=== PATIENT | male | born 1955 | race Two or more races ===

== ENCOUNTER 2025-03-17 08:04 | Inpatient (IN) | payer MEDICARE, OTHER ==
[~2025-03-17] VITALS: Ht 175.3 cm; Wt 121.7 kg
--- NOTE | 2025-03-17 08:45 | ED.PDOC ---
History of Present Illness HPI Comments 69-year-old male presents to the ED with a chief complaint of elevated HR onset today. Patient states he was going to get RT eye surgery, had EKG done, had elevated HR in the 160s, advised to come to ED. Patient states he is currently not experiencing any symptoms, has no complaints. Is currently on blood thinners, has not taken them for the past 8 days due to surgery. Upon ED arrival, EKG showed heart rate of 138 with atrial fibrillation. Denies headache, chest pain, shortness of breath, dizziness, blurred vision, nausea, vomiting, dysuria, numbness/tingling, weakness, dysuria, hematuria. No other symptoms or modifying factors present at this time. Chief Complaint: Abnormal LAB's Time Seen by MD: 08:40 Reviewed Notes: Medications, Allergies Allergies: Coded Allergies: NO KNOWN ALLERGIES (Unverified , 03/17/25) Information Source: Patient Mode of Arrival: Ambulatory Severity: Moderate Timing: Hours Duration: Since onset Prehospital treatment: None Past Medical History PAST MEDICAL HISTORY: Denies Surgical History: Denies all surgeries Family History Family History: Reviewed,noncontributory to illness, No family hx of Cancer, No family hx of DM, No family hx of Heart eve, No family hx of HTN, No family hx ofKidney eve, No family hx of Liver eve, No family hx of Lung eve, No family hx of Stroke Social History Smoker: Non-Smoker Alcohol: Denies ETOH Use Drugs: Denies Drug Use Lives In: Home Constitutional: denies: chills, diaphoresis, fatigue, fever, malaise, sweats, weakness, others EENTM: denies: blurred vision, double vision, ear bleeding, ear discharge, ear drainage, ear pain, ear ringing, eye pain, eye redness, hearing loss, mouth pain, mouth swelling, nasal discharge, nose bleeding, nose congestion, nose pain, photophobia, tearing, throat pain, throat swelling, voice changes, others Respiratory: denies: cough, hemoptysis, orthopnea, SOB at rest, shortness of breath, SOB with excertion, stridor, wheezing, others Cardiovascular: reports: others (elevated HR); denies: chest pain, dizzy spells, diaphoresis, Dyspnea on exertion, edema, irregular heart beat, left arm pain, lightheadedness, palpitations, PND, syncope Gastrointestinal: denies: abdomen distended, abdominal pain, blood streaked bowels, constipated, diarrhea, dysphagia, difficulty swallowing, hematemesis, melena, nausea, poor appetite, poor fluid intake, rectal bleeding, rectal pain, vomiting, others Genitourinary: denies: burning, dysuria, flank pain, frequency, hematuria, incontinence, penile discharge, penile sore, pain, testicle pain, testicle swelling, urgency, others Neurological: denies: dizziness, fainting, headache, left sided numbness, left sided weakness, numbness, paresthesia, pre-existing deficit, right sided numbness, right sided weakness, seizure, speech problems, tingling, tremors, weakness, others Musculoskeletal: denies: back pain, gout, joint pain, joint swelling, muscle pain, muscle stiffness, neck pain, others Integumetry: denies: bruises, change in color, change in hair/nails, dryness, laceration, lesions, lumps, rash, wounds, others Allergic/Immunocompromised: denies: Difficulty Healing, Frequent Infections, Hives, Itching, others Hematologic/Lymphatic: denies: anemia, blood clots, easy bleeding, easy bruising, swollen glands, others Endocrine: denies: excessive hunger, excessive sweating, excessive thirst, excessive urination, flushing, intolerance to cold, intolerance to heat, unexplained weight gain, unexplained weight loss, others Psychiatric: denies: anxiety, bipolar disorder, depression, hopeless, panic disorder, schizophrenia, sleepless, suicidal, others All Other Systems: Reviewed and Negative Physical Exam General Appearance: Moderate Distress, Normal HEENT: Normal ENT Inspection, Pharynx Normal, TMs Normal Neck: Full Range of Motion, Non-Tender, Normal, Normal Inspection Respiratory: Chest Non-Tender, Lungs Clear, No Accessory Muscle Use, No Respiratory Distress, Normal Breath Sounds Cardiovascular: Irregular, No Edema, No JVD, No Murmur, No Gallop, Normal Peripheral Pulses, Tachycardia Breast Exam: Deferred Gastrointestinal: No Organomegaly, Non Tender, No Pulsatile Mass, Normal Bowel Sounds, Soft Genitalia: Deferred Pelvic: Deferred Rectal: Deferred Extremities: No calf tenderness, Normal capillary refill, Normal inspection, Normal range of motion, Non-tender, No pedal edema Musculoskeletal : Apperance: Normal Neurologic: Alert, oracle r12 developer II-XII nml as Tested, No Motor Deficits, Normal Affect, Normal Mood, No Sensory Deficits Cerebellar Function: Normal Reflexes: Normal Skin: Dry, Normal Color, Warm Peripheral Pulses: 3+ Radial (R), 3+ Radial (L) Lymphatic: No Adenopathy Was a procedure done? Was a procedure done?: No EKG EKG : Pulse Rate (adult): 138 Cardiac Rhythm: Afib Differential Dx Considerations may include: Atrial fibrillation X-Ray, Labs, Meds, VS Vital Signs Date Time Temp Pulse Resp B/P (MAP) Pulse Ox O2 Delivery O2 Flow Rate FiO2 03/17/25 13:00 105 17 120/77 (91) 98 03/17/25 12:00 84 15 108/65 (79) 98 03/17/25 11:00 122 20 124/70 (88) 99 03/17/25 10:02 101 03/17/25 09:46 144 17 99 Room Air* 0 21 03/17/25 09:46 97.8 144 17 127/78 (94) 99 97.8 03/17/25 09:03 97.5 71 17 128/88 (101) 100 97.5 03/17/25 08:47 138 03/17/25 08:21 138 03/17/25 08:08 97.4 83 18 142/81 98 97.4 Lab Test 03/17/25 11:30 03/17/25 08:54 Range/Units Urine Color Light-yellow Yellow Urine Clarity Clear Clear Urine pH 5.0 5.0-9.0 Urine Specific [place] 1.021 1.001-1.035 Urine Protein Negative Negative Urine Ketones Negative Negative Urine Blood Negative Negative /uL Urine Nitrite Negative Negative Urine Bilirubin Negative Negative Urine Urobilinogen Normal Negative mg/dL Urine Leukocyte Esterase Negative Negative /uL Urine RBC None seen 0 - 3 /hpf Urine Microscopic WBC < 1 0-3 /HPF Urine Squamous Epithelial Cells Few <5 /hpf Urine Bacteria None seen None Seen /hpf Urine Mucus Few None Seen Urine Glucose 3+ H Normal mg/dL White Blood Count 8.5 4.4-10.8 10^3/uL Red Blood Count 5.42 4.5-5.90 10^6/uL Hemoglobin 17.1 13.5-17.5 g/dL Hematocrit 48.7 41.0-53.0 % Mean Corpuscular Volume 89.9 80.0-100.0 fL Mean Corpuscular Hemoglobin 31.6 28.0-32.0 pg Mean Corpuscular Hemoglobin Concent 35.1 32.0-36.0 g/dL Red Cell Distribution Width 13.0 11.8-14.3 % Platelet Count 258 140-450 10^3/uL Mean Platelet Volume 8.0 6.9-10.8 fL Neutrophils (%) (Auto) 71.0 37.0-80.0 % Lymphocytes (%) (Auto) 20.0 10.0-50.0 % Monocytes (%) (Auto) 6.5 0.0-12.0 % Eosinophils (%) (Auto) 1.6 0.0-7.0 % Basophils (%) (Auto) 0.9 0.0-2.0 % Neutrophils # (Auto) 6.1 1.6-8.6 10 ^3/uL Lymphocytes # (Auto) 1.7 0.4-5.4 10 ^3/uL Monocytes # (Auto) 0.6 0-1.3 10 ^3/uL Eosinophils # (Auto) 0.1 0-0.8 10 ^3/uL Basophils # (Auto) 0.1 0-0.2 10 ^3/uL Nucleated Red Blood Cells 0.3 % Sodium Level 140 136-145 mmol/L Potassium Level 4.2 3.5-5.1 mmol/L Chloride Level 104 98-107 mmol/L Carbon Dioxide Level 27 20-31 mmol/L Anion Gap 9 5-15 Blood Urea Nitrogen 16 9-23 mg/dL Creatinine 0.92 0.700-1.30 mg/dL Glomerular Filtration Rate Calc 91 >90 mL/min BUN/Creatinine Ratio 17.4 10.0-20.0 Serum Glucose 203 H 74-106 mg/dL Calcium Level 9.6 8.7-10.4 mg/dL Troponin I High Sensitivity 5 </=54 ng/L Current Medications Medications (Trade) Dose Ordered Sig/Russ Route Start Time Stop Time Status Last Admin Amiodarone HCl 100 ml @ 600 mls/hr ONCE ONCE IV 03/17/25 08:45 03/17/25 08:54 DC 03/17/25 09:44 Amiodarone HCl 250 ml @ 33.33 mls/ hr Q7H31M ONCE IV 03/17/25 09:00 03/17/25 16:30 03/17/25 10:00 Acetaminophen/ Hydrocodone Bitart ([place] 5/325MG Tab) 1 tab ONCE ONCE PO 03/17/25 10:30 03/17/25 10:31 DC 03/17/25 10:47 Patient alert. Irregular rhythm. Vitals stable. Answering questions. He does not know he has a history of atrial fibrillation. Saturation pristine on room air. Blood pressure slightly elevated. EKG reviewed does show atrial fibrillation. Started amiodarone. Explained to the patient. Continue monitoring. [place] [id number] Ph: [phone] DIAGNOSTIC IMAGING Diagnostic Imaging Report : [id number] Signed PATIENT: JUAN DIEGO LARSON ACCT: [id number] UNIT: [id number] : 1955 LOC: ER ROOM / BED: / AGE / SEX: 69 / M ADM STATUS: REG ER SERVICE 8 ORDERING PHYSICIAN: FITO SHEPHERD MD PROCEDURE(s): CXRP - CHEST PORTABLE REASON: sob ORDER NUMBER(s): [id number], ACCESSION NUMBER(s): [id number] EXAM: XY CHEST PORTABLE HISTORY: sob COMPARISON: None TECHNIQUE: Portable AP view of the chest was performed. FINDINGS: No pneumothorax, consolidative infiltrates, or pulmonary edema. The heart is not enlarged. There is mild thoracic degenerative disc disease. IMPRESSION: No acute intrathoracic process. ATED BY: BLANCA MOSS MD DICTATED DATE/TIME: 03/17/25909 SIGNED BY: BLANCA MOSS MD SIGNED DATE/TIME: 03/17/25909 CC: Time of 1ST Reevaluation: 09:10 Reevaluation 1ST: Unchanged Patient Education/Counseling: Diagnosis, Treatment, Prognosis Family Education/Counseling: No Family Present SEPSIS Sepsis Screen Date sepsis recognized/suspect: Mar 17, 2025 Time Sepsis recognized/suspect: 0808 Recent Procedure: No On Antibiotic Therapy: No Respiratory Rate >20: No Heart Rate >90: No Temp<36 C (96.8 F) or >38.3 C: No SBP <90 or MAP <65 mmHG: No New Acute Mental Status Change: No Is the patient on CPAP, BIPAP,: No Physician Orders Chest Portable (03/17/25 08:39) Amiodarone 450mg/250ml Ae (Cordarone) (03/17/25 09:00) Electrocardigram (03/17/25 09:17) Vital Signs Date Time Temp Pulse Resp B/P (MAP) Pulse Ox O2 Delivery O2 Flow Rate FiO2 03/17/25 13:00 105 17 120/77 (91) 98 03/17/25 12:00 84 15 108/65 (79) 98 03/17/25 11:00 122 20 124/70 (88) 99 03/17/25 10:02 101 03/17/25 09:46 144 17 99 Room Air* 0 21 03/17/25 09:46 97.8 144 17 127/78 (94) 99 97.8 03/17/25 09:03 97.5 71 17 128/88 (101) 100 97.5 03/17/25 08:47 138 03/17/25 08:21 138 03/17/25 08:08 97.4 83 18 142/81 98 97.4 Laboratory Tests Test 03/17/25 08:54 White Blood Count 8.5 10^3/uL (4.4-10.8) Medications Medications Dose Ordered Sig/Russ Route Start Time Stop Time Status Last Admin Dose Admin Acetaminophen/ Hydrocodone Bitart 1 tab ONCE ONCE PO 03/17/25 10:30 03/17/25 10:31 DC 03/17/25 10:47 Amiodarone HCl 100 ml @ 600 mls/hr ONCE ONCE IV 03/17/25 08:45 03/17/25 08:54 DC 03/17/25 09:44 Amiodarone HCl 250 ml @ 33.33 mls/ hr Q7H31M ONCE IV 03/17/25 09:00 03/17/25 16:30 03/17/25 10:00 Departure 1 Departure Time of Disposition: 09:03 Impression: Primary Impression: Atrial fibrillation Qualified Codes: I48.0 - Paroxysmal atrial fibrillation Additional Impression: HTN (hypertension) Qualified Codes: I10 - Essential (primary) hypertension Disposition: ADMITTED INPATIENT Admit to: Med Surg Condition: Guarded Critical Care Note Critical Care Time?: Yes (90 min-critical care time only) Stability Stability form required: No Heart Score Heart Score: Heart Score Response (Comments) Value History Slightly Suspicious 0 EKG Normal 0 Age >65 2 Risk Factors >3 or Hx ASHD 2 Troponin Normal limit 0 Total 4 I personally scribed for FITO SHEPHERD MD ([email or web address]) on 03/17/25 at 08:45. Electronically submitted by Heidi Talavera ([email or web address]). I personally scribed for FITO SHEPHERD MD ([email or web address]) on 03/17/25 at 08:47. Electronically submitted by Heidi Talavera ([email or web address]). I personally scribed for FITO SHEPHERD MD ([email or web address]) on 03/17/25 at 09:32. Electronically submitted by Heidi Talavera ([email or web address]). FITO SHEPHERD MD Mar 17, 2025 08:45
[2025-03-17 09:07] LABS: Hematocrit 48.7 % (41.0-53.0); Hemoglobin 17.1 g/dL (13.5-17.5); Mean Corpuscular Hemoglobin 31.6 pg (28.0-32.0); Mean Corpuscular Volume 89.9 fL (80.0-100.0); Nucleated Red Blood Cells % 0.3 %
[2025-03-17 09:11] LABS: Chloride 104 mmol/L (98-107); Potassium 4.2 mmol/L (3.5-5.1); Sodium 140 mmol/L (136-145)
[2025-03-17 09:12] LABS: Anion Gap 9 (5-15); Carbon Dioxide 27 mmol/L (20-31)
--- NOTE | 2025-03-17 09:12 | DVH ---
EXAM: XY CHEST PORTABLE HISTORY: sob COMPARISON: None TECHNIQUE: Portable AP view of the chest was performed. FINDINGS: No pneumothorax, consolidative infiltrates, or pulmonary edema. The heart is not enlarged. There is mild thoracic degenerative disc disease. IMPRESSION: No acute intrathoracic process.
[2025-03-17 09:13] LABS: Calcium 9.6 mg/dL (8.7-10.4)
[2025-03-17 09:17] LABS: BUN/Creatinine Ratio 17.4 (10.0-20.0); Blood Urea Nitrogen 16 mg/dL (9-23)
[2025-03-17 09:20] LABS: Glucose 203 mg/dL (74-106)
[2025-03-17] MEDS: AMIODARONE BOLUS KIT 100 ML IV ONE (09:44)
[2025-03-17 09:46] VITALS: PULSE 144; RESP 17; O2SAT 99
[2025-03-17] MEDS: HYDROcodone-ACET 5/325MG TAB PO ONE (10:47)
[2025-03-17 12:04] LABS: Urine Protein, UAD Negative (Negative)
[2025-03-17 16:07] LABS: Cholesterol 187 mg/dL (< 200); HDL Cholesterol 52 mg/dL (40-59)
[2025-03-17 16:12] LABS: Triglycerides 160 mg/dL (< 150)
--- NOTE | 2025-03-17 16:35 | DVHHPRES ---
History of Present Illness Resident Creating Document: HARSH SEWELL RESIDENT History of Present Illness 69-year-old male with past medical history of diabetes mellitus, hypertension was recently in the [facility] for cataract surgery where he had the preop evaluation and was found to have a heart rate of 160s. Patient was asymptomatic during that period of time. Patient is transferred to the ER for management of elevated heart rate. On presenting to the ER, patient was found to have atrial fibrillation and was started on amiodarone drip by the ER physician. He mentioned that he never had AFib in the past and this is new onset AFib. Patient is currently on aspirin(started by the PCP because patient has a history of diabetes and hypertension for cardio protection but no other specific reason) but no other anticoagulants/antiplatelets. He denied any history of stroke. Currently patient is on amiodarone drip and heart rate is fluctuating from 90s to 120s. Patient is not mentioning any complaints of chest pain, shortness of breath, palpitations, dizziness, headache, cough, nausea, vomiting. Past medical history Diabetes mellitus, hypertension Past surgical history No recent surgery Medication history Metformin Glipizide Pioglitazone Aspirin Gabapentin Antihypertensive medication with 2.5 mg daily dose but does not remember the name of the medication Social history Patient lives with family Denied smoking, marijuana, alcohol intake Patient has a PCP but does not remember the PCPs name Allergic history No known allergies Family history No significant history of anyone in the family having heart disease Review of Systems Review of Systems As described in the HPI Allergies: Coded Allergies: NO KNOWN ALLERGIES (Unverified , 03/17/25) Medications Current Medications Medications Dose Ordered Sig/Russ Route Start Time Stop Time Status Last Admin Dose Admin Enoxaparin Sodium 80 mg Q12HR SC 03/17/25 22:00 UNV Exam Vital Signs Vital Signs Date Time Temp Pulse Resp B/P (MAP) Pulse Ox O2 Delivery O2 Flow Rate FiO2 03/17/25 13:00 105 17 120/77 (91) 98 03/17/25 09:46 Room Air* 0 21 03/17/25 09:46 97.8 97.8 Exam Examination General Appearance: Alert, Oriented X3, Cooperative, No acute distress HEENT: EOMI Respiratory: Clear to auscultation, Normal air movement Cardiovascular: Regular rate, Normal S1, Normal S2 Abdominal: Normal bowel sounds Extremities: No cyanosis, No edema, Normal pulses, No tenderness/swelling Skin: No rashes, No breakdown Neuro: Normal speech and tone Labs/Xrays Labs Test 03/17/25 11:30 03/17/25 08:54 Range/Units Urine Color Light-yellow Yellow Urine Clarity Clear Clear Urine pH 5.0 5.0-9.0 Urine Specific [place] 1.021 1.001-1.035 Urine Protein Negative Negative Urine Ketones Negative Negative Urine Blood Negative Negative /uL Urine Nitrite Negative Negative Urine Bilirubin Negative Negative Urine Urobilinogen Normal Negative mg/dL Urine Leukocyte Esterase Negative Negative /uL Urine RBC None seen 0 - 3 /hpf Urine Microscopic WBC < 1 0-3 /HPF Urine Squamous Epithelial Cells Few <5 /hpf Urine Bacteria None seen None Seen /hpf Urine Mucus Few None Seen Urine Glucose 3+ H Normal mg/dL White Blood Count 8.5 4.4-10.8 10^3/uL Red Blood Count 5.42 4.5-5.90 10^6/uL Hemoglobin 17.1 13.5-17.5 g/dL Hematocrit 48.7 41.0-53.0 % Mean Corpuscular Volume 89.9 80.0-100.0 fL Mean Corpuscular Hemoglobin 31.6 28.0-32.0 pg Mean Corpuscular Hemoglobin Concent 35.1 32.0-36.0 g/dL Red Cell Distribution Width 13.0 11.8-14.3 % Platelet Count 258 140-450 10^3/uL Mean Platelet Volume 8.0 6.9-10.8 fL Neutrophils (%) (Auto) 71.0 37.0-80.0 % Lymphocytes (%) (Auto) 20.0 10.0-50.0 % Monocytes (%) (Auto) 6.5 0.0-12.0 % Eosinophils (%) (Auto) 1.6 0.0-7.0 % Basophils (%) (Auto) 0.9 0.0-2.0 % Neutrophils # (Auto) 6.1 1.6-8.6 10 ^3/uL Lymphocytes # (Auto) 1.7 0.4-5.4 10 ^3/uL Monocytes # (Auto) 0.6 0-1.3 10 ^3/uL Eosinophils # (Auto) 0.1 0-0.8 10 ^3/uL Basophils # (Auto) 0.1 0-0.2 10 ^3/uL Nucleated Red Blood Cells 0.3 % Sodium Level 140 136-145 mmol/L Potassium Level 4.2 3.5-5.1 mmol/L Chloride Level 104 98-107 mmol/L Carbon Dioxide Level 27 20-31 mmol/L Anion Gap 9 5-15 Blood Urea Nitrogen 16 9-23 mg/dL Creatinine 0.92 0.700-1.30 mg/dL Glomerular Filtration Rate Calc 91 >90 mL/min BUN/Creatinine Ratio 17.4 10.0-20.0 Serum Glucose 203 H 74-106 mg/dL Calcium Level 9.6 8.7-10.4 mg/dL Troponin I High Sensitivity 5 </=54 ng/L SEPSIS Sepsis Screen Date sepsis recognized/suspect: Mar 17, 2025 Time Sepsis recognized/suspect: 945 Recent Procedure: No On Antibiotic Therapy: No Respiratory Rate >20: No Heart Rate >90: Yes Temp<36 C (96.8 F) or >38.3 C: No SBP <90 or MAP <65 mmHG: No New Acute Mental Status Change: No Is the patient on CPAP, BIPAP,: No Physician Orders Chest Portable (03/17/25 08:39) Amiodarone 450mg/250ml Ae (Cordarone) (03/17/25 09:00) Electrocardigram (03/17/25 09:17) Admit (03/17/25 14:58) Code Status (03/17/25 14:58) Complete Blood Count (03/18/25 04:00) Comprehensive Metabolic Panel (03/18/25 04:00) Echo 2d Mode Cardiac Dop (03/17/25 14:58) Notify Md Of Changes From Base (03/17/25 14:58) Groundsman For 24 Hours (03/17/25 14:58) Emergency Dysrhythmia Protocol (03/17/25 14:58) Rhythm Strips Once Every Shift (03/17/25 14:58) * Cardiology Consult (03/17/25 14:58) Cardiac Diet-2gna,Lofat,Lochol (03/17/25 Dinner) Hemoglobin A1c (03/17/25 15:34) Lipid Panel (03/17/25 15:34) Enoxaparin Sodium (Lovenox) (03/17/25 22:00) PTPTT (03/17/25 15:34) Drug Screen (03/17/25 15:36) Vital Signs Date Time Temp Pulse Resp B/P (MAP) Pulse Ox O2 Delivery O2 Flow Rate FiO2 03/17/25 13:00 105 17 120/77 (91) 98 03/17/25 12:00 84 15 108/65 (79) 98 03/17/25 11:00 122 20 124/70 (88) 99 03/17/25 10:02 101 03/17/25 09:46 144 17 99 Room Air* 0 21 03/17/25 09:46 97.8 144 17 127/78 (94) 99 97.8 03/17/25 09:03 97.5 71 17 128/88 (101) 100 97.5 03/17/25 08:47 138 03/17/25 08:21 138 03/17/25 08:08 97.4 83 18 142/81 98 97.4 Laboratory Tests Test 03/17/25 08:54 White Blood Count 8.5 10^3/uL (4.4-10.8) Medications Medications Dose Ordered Sig/Russ Route Start Time Stop Time Status Last Admin Dose Admin Acetaminophen/ Hydrocodone Bitart 1 tab ONCE ONCE PO 03/17/25 10:30 03/17/25 10:31 DC 03/17/25 10:47 1 TAB Amiodarone HCl 100 ml @ 600 mls/hr ONCE ONCE IV 03/17/25 08:45 03/17/25 08:54 DC 03/17/25 09:44 600 MLS/HR Amiodarone HCl 250 ml @ 33.33 mls/ hr Q7H31M ONCE IV 03/17/25 09:00 03/17/25 16:30 03/17/25 10:00 33.33 MLS/HR Assessment/Plan Assessment/Plan Assessment/plan # new onset AFib with CHADS-VASc score of 4 and has bled score of 3 - currently on amiodarone and therapeutic Lovenox Cardiology consulted Echocardiogram ordered Chest x-ray EKG, trops # Hypertension -currently on Coreg started by the batching operator # diabetes mellitus type 2 -sliding scale insulin #DVT prophylaxis On therapeutic Lovenox Code status discussed with the patient for greater than 21 minutes, full code Case discussion with Dr Crooks Plan discussed with: Patient, Other My Orders Orders - HARSH SEWELL RESIDENT Procedure Category Date Status Time Admit ADMIT 03/17/25 Transmitted 14:58 Code Status CODE 03/17/25 Transmitted 14:58 Complete Blood Count LAB 03/18/25 Verified 04:00 Comprehensive LAB 03/18/25 Verified Metabolic Panel 04:00 Echo 2d Mode Cardiac US 03/17/25 Logged DOP 14:58 Notify Of Changes [facility] 03/17/25 In Process From Base 14:58 Groundsman For [facility] 03/17/25 In Process 24 Hours 14:58 Emergency Dysrhythmia [facility] 03/17/25 In Process Protocol 14:58 Rhythm Strips Once [facility] 03/17/25 In Process Every Shift 14:58 * Cardiology Consult CONS 03/17/25 Transmitted 14:58 Cardiac DIET 03/17/25 Transmitted Diet-2gna,Lofat,Lochol Dinner Hemoglobin A1c LAB 03/17/25 In Process 15:34 Lipid Panel LAB 03/17/25 In Process 15:34 Enoxaparin Sodium PHA 03/17/25 Logged (Lovenox) 22:00 PTPTT LAB 03/17/25 Logged 15:34 Drug Screen LAB 03/17/25 Logged 15:36 Date of Service: Mar 17, 2025 Billing Provider: KEVIN CROOKS MD Common Visit Codes: 99355-[id number] INP/OBS CARE (HIGH) Secondary Visit Codes: [id number] CARE PLAN 30 MINUTES HARSH SEWELL RESIDENT Mar 17, 2025 16:35 KEVIN CROOKS MD Mar 18, 2025 01:51
[2025-03-17 16:50] LABS: INR 1.07 (0.9-1.15); Partial Thromboplastin Time 27.4 SEC (24.5-34.5); Prothrombin Time 11.3 sec (9.3-11.8)
--- NOTE | 2025-03-17 17:12 | DVHINCON2 ---
Date of service: Mar 17, 2025 History of Present Illness 69-year-old male with past medical history of diabetes mellitus, hypertension was recently in the [facility] for cataract surgery where he had the preop evaluation and was found to have a heart rate of 160s. Patient was asymptomatic during that period of time. Patient is transferred to the ER for management of elevated heart rate. On presenting to the ER, patient was found to have atrial fibrillation and was started on amiodarone drip by the ER physician. He mentioned that he never had AFib in the past and this is new onset AFib. Patient is currently on aspirin(started by the PCP because patient has a history of diabetes and hypertension for cardio protection but no other specific reason) but no other anticoagulants/antiplatelets. He denied any history of stroke. Currently patient is on amiodarone drip and heart rate is fluctuating from 90s to 120s. Patient is not mentioning any complaints of chest pain, shortness of breath, palpitations, dizziness, headache, cough, nausea, vomiting. Past medical history Diabetes mellitus, hypertension Past surgical history No recent surgery Medication history Metformin Glipizide Pioglitazone Aspirin Gabapentin Antihypertensive medication with 2.5 mg daily dose but does not remember the name of the medication Past Medical History reviewed Allergies: Coded Allergies: NO KNOWN ALLERGIES (Unverified , 03/17/25) Current Medications Current Medications Medications (Trade) Dose Ordered Sig/Russ Route PRN Reason Start Time Stop Time Status Last Admin Enoxaparin Sodium (Lovenox) 80 mg Q12HR SC 03/17/25 22:00 UNV Amiodarone HCl 250 ml @ 16.66 mls/ hr Q15H1M IV 03/17/25 23:15 UNV Review of Systems 10 pt ros otherwise negative Vital Signs Vital Signs Date Time Temp Pulse Resp B/P (MAP) Pulse Ox O2 Delivery O2 Flow Rate FiO2 03/17/25 16:00 99 18 123/60 (81) 96 03/17/25 09:46 Room Air* 0 21 03/17/25 09:46 97.8 97.8 Physical Exam nad s1 s2 irregular ctab soft nt/nd no edema Labs/Diagnostic Data Labs Test 03/17/25 16:14 03/17/25 11:30 03/17/25 08:54 Range/Units Prothrombin Time 11.3 9.3-11.8 sec Prothrombin Time INR 1.07 0.9-1.15 Activated Partial Thromboplast Time 27.4 24.5-34.5 SEC Urine Color Light-yellow Yellow Urine Clarity Clear Clear Urine pH 5.0 5.0-9.0 Urine Specific [place] 1.021 1.001-1.035 Urine Protein Negative Negative Urine Ketones Negative Negative Urine Blood Negative Negative /uL Urine Nitrite Negative Negative Urine Bilirubin Negative Negative Urine Urobilinogen Normal Negative mg/dL Urine Leukocyte Esterase Negative Negative /uL Urine RBC None seen 0 - 3 /hpf Urine Microscopic WBC < 1 0-3 /HPF Urine Squamous Epithelial Cells Few <5 /hpf Urine Bacteria None seen None Seen /hpf Urine Mucus Few None Seen Urine Glucose 3+ H Normal mg/dL White Blood Count 8.5 4.4-10.8 10^3/uL Red Blood Count 5.42 4.5-5.90 10^6/uL Hemoglobin 17.1 13.5-17.5 g/dL Hematocrit 48.7 41.0-53.0 % Mean Corpuscular Volume 89.9 80.0-100.0 fL Mean Corpuscular Hemoglobin 31.6 28.0-32.0 pg Mean Corpuscular Hemoglobin Concent 35.1 32.0-36.0 g/dL Red Cell Distribution Width 13.0 11.8-14.3 % Platelet Count 258 140-450 10^3/uL Mean Platelet Volume 8.0 6.9-10.8 fL Neutrophils (%) (Auto) 71.0 37.0-80.0 % Lymphocytes (%) (Auto) 20.0 10.0-50.0 % Monocytes (%) (Auto) 6.5 0.0-12.0 % Eosinophils (%) (Auto) 1.6 0.0-7.0 % Basophils (%) (Auto) 0.9 0.0-2.0 % Neutrophils # (Auto) 6.1 1.6-8.6 10 ^3/uL Lymphocytes # (Auto) 1.7 0.4-5.4 10 ^3/uL Monocytes # (Auto) 0.6 0-1.3 10 ^3/uL Eosinophils # (Auto) 0.1 0-0.8 10 ^3/uL Basophils # (Auto) 0.1 0-0.2 10 ^3/uL Nucleated Red Blood Cells 0.3 % Sodium Level 140 136-145 mmol/L Potassium Level 4.2 3.5-5.1 mmol/L Chloride Level 104 98-107 mmol/L Carbon Dioxide Level 27 20-31 mmol/L Anion Gap 9 5-15 Blood Urea Nitrogen 16 9-23 mg/dL Creatinine 0.92 0.700-1.30 mg/dL Glomerular Filtration Rate Calc 91 >90 mL/min BUN/Creatinine Ratio 17.4 10.0-20.0 Serum Glucose 203 H 74-106 mg/dL Hemoglobin A1c 6.7 H <5.7 % A1C Calcium Level 9.6 8.7-10.4 mg/dL Troponin I High Sensitivity 5 </=54 ng/L Triglycerides Level 160 H < 150 mg/dL Cholesterol Level 187 < 200 mg/dL LDL Cholesterol 130 H < 100 mg/dL HDL Cholesterol 52 40-59 mg/dL Assessment afib rvr preop cataract DM Plan/Recommendation agree with amio gtt lovenox check echo cont BB could be chronic transition to po amio tomorrow pt says he had ecg 2 weeks ago which was normal, we dont have this however Plan discussed with: Patient ANAT GAFFNEY MD Mar 17, 2025 17:12
[2025-03-17] MEDS ORDERED: DEXTROSE (50%) 50ML SYRG IV PRN (18:30)
[2025-03-17 21:16] VITALS: BP 136/97; PULSE 122; RESP 18; TEMP 98.1; O2SAT 98
[2025-03-17 21:45] LABS: Amphetamine Screen, Urine Neg (NEGATIVE); Barbiturate Scree,Urine Neg (NEGATIVE); Benzodiazephine Screen, Urine Neg (NEGATIVE); Cocaine Screen, Urine Neg (NEGATIVE); Opiate Scree,Urine Neg (NEGATIVE)
[2025-03-17 21:46] LABS: Cannabinoid Screen, Urine Neg (NEGATIVE); Phencyclidine Screen, Urine Neg (NEGATIVE)
[2025-03-17] MEDS: CARVEDILOL 3.125 MG TAB PO SCH (22:49)
[2025-03-17] MEDS: ENOXAPARIN SOD 80 MG/0.8ML SYRINGE SC SCH (22:50)
[2025-03-18] VITALS (8 sets, daily range): BP systolic 118–141; BP diastolic 54–86; PULSE 62–98; RESP 16–18; TEMP 97.7–98; O2SAT 96–99
[2025-03-18] MEDS ORDERED: GLIP10TA9 PO (03:53)
[2025-03-18] MEDS ORDERED: LISI2.5T47 PO (03:53)
[2025-03-18] MEDS ORDERED: ASPI81CH59 PO (03:53)
[2025-03-18] MEDS ORDERED: METF-372 PO (03:53)
[2025-03-18 07:08] LABS: Hematocrit 45.0 % (41.0-53.0); Hemoglobin 15.8 g/dL (13.5-17.5); Mean Corpuscular Hemoglobin 31.5 pg (28.0-32.0); Mean Corpuscular Volume 89.6 fL (80.0-100.0); Nucleated Red Blood Cells % 0.1 %
[2025-03-18 07:23] LABS: Alanine Aminotransferase 11 U/L (7-40); Albumin 4.0 g/dL (3.2-4.8); Alkaline Phosphatase 82 U/L (46-116); Anion Gap 11 (5-15); BUN/Creatinine Ratio 17.2 (10.0-20.0); Bilirubin, Total 0.7 mg/dL (0.2-1.0); Blood Urea Nitrogen 15 mg/dL (9-23); Calcium 9.0 mg/dL (8.7-10.4); Carbon Dioxide 26 mmol/L (20-31); Chloride 103 mmol/L (98-107); Potassium 4.3 mmol/L (3.5-5.1); Sodium 140 mmol/L (136-145); Total Protein 6.5 g/dL (5.7-8.2)
[2025-03-18 07:30] LABS: Glucose 236 mg/dL (74-106)
[2025-03-18] MEDS ORDERED: DEXTROSE (50%) 50ML SYRG IV PRN (08:15)
[2025-03-18] MEDS: ACCU-CHEK COMFORT CURVE STRIP VI SCH ×2 (10:49)
[2025-03-18] MEDS: InsuLIN REG 1unit/0.01ml Soln (100units/ml) SC SCH ×2 (10:49)
--- NOTE | 2025-03-18 18:23 | DVHPNRES ---
Progress Note Date Seen: Mar 18, 2025 Resident Creating Document: SINTIA BRADEN RESIDENT Medical Necessity Reason Pt with a Central, PICC or Fol: No Subjective Review of Systems 69-year-old male with past medical history of diabetes mellitus, hypertension was recently in the [facility] for cataract surgery where he had the preop evaluation and was found to have a heart rate of 160s. Patient was asymptomatic during that period of time. Patient is transferred to the ER for management of elevated heart rate. On presenting to the ER, patient was found to have atrial fibrillation and was started on amiodarone drip by the ER physician. He mentioned that he never had AFib in the past and this is new onset AFib. Patient is currently on aspirin(started by the PCP because patient has a history of diabetes and hypertension for cardio protection but no other specific reason) but no other anticoagulants/antiplatelets. He denied any history of stroke. Patient also states he has been taking aspirin for 30 years. And stopped 8 days ago to get cataract surgery. Past surgical history: Denies Family history: Reviewed, noncontributory Social history: Patient denies smoking, alcohol, drug use, medication history: Metformin ,Glipizide, Pioglitazone , Aspirin, Gabapentin Lives with: Family 03/18/2025: Patient seen at bedside. Patient denies any symptoms, nausea, vomiting, palpitations, chest pain, shortness of breath. Patient switched to p.o. amio b.i.d.. Patient is to be discharged tomorrow with Eliquis at bedside. Objective vital signs Vital Sign Date Time Temp Pulse Resp B/P (MAP) Pulse Ox O2 Delivery O2 Flow Rate FiO2 03/18/25 17:00 98.0 68 18 141/86 (104) 99 98.0 03/18/25 08:15 Room Air* 0 21 Total Intake and Output 03/17/25 03/17/25 03/18/25 15:00 23:00 07:00 Intake Total 266.65 ml 100.01 ml 300 ml Balance 266.65 ml 100.01 ml 300 ml medications Current Medications Medications Dose Ordered Sig/Russ Route Start Time Stop Time Status Last Admin Dose Admin Enoxaparin Sodium 80 mg Q12HR SC 03/17/25 22:00 03/17/25 22:50 80 MG Carvedilol 6.25 mg Q12HR PO 03/17/25 22:00 122/25 09:23 6.25 MG Insulin Glargine 10 units HS SC 03/18/25 22:00 Diagnostic Test (Pha) 1 strip ACHS 03/18/25 11:30 03/18/25 10:49 1 STRIP Insulin Human Regular ACHS SC 03/18/25 11:30 Dextrose 50 ml UD PRN IV 03/18/25 08:15 Amiodarone HCl 250 ml @ 16.66 mls/ hr Q15H1M IV 03/18/25 16:00 03/18/25 22:00 Amiodarone HCl 200 mg Q12HR PO 03/18/25 22:00 Examination General: Patient alert and oriented in person, place and time. Patient following commands. HEENT: Normocephalic, atraumatic, moist mucous membranes Respiratory/pulmonary: Clear lungs bilaterally, vesicular murmurs present in almost all lung eckert, no associated crackles or wheezes. Cardiovascular: Normal heart sounds S1 and S2 with no associated murmurs Abdomen: Abdomen nondistended, there is no pain to palpation in any of the abdominal quadrants, no palpable masses. Extremities: There is no peripheral edema present at the lower extremities. Peripheral Pulses: 3+ Radial (R). 3+ Radial (L). 3+ Dorsalis pedis (R). 3+ Dorsalis pedis(L) Skin: No rashes or pruritus, there is no sacral edema present at this time. Neurological: Intact cranial nerves with no focal neurologic deficits laboratory and microbiology Laboratory Tests 03/18/25 06:16 Test 03/18/25 06:16 Range/Units Serum Glucose 236 H 74-106 mg/dL Problem List/Assessment/Plan Problem List/Assessment/Plan # new onset AFib - CHADS-VASc score of 4 - has bled score of 3 - Amio b.i.d. - Cardiology consulted - Echocardiogram ordered , pending - Chest x-ray No acute intrathoracic process EKG, trops negative # Hypertension -currently on Coreg started by the recreation specialist # diabetes mellitus type 2 -sliding scale insulin #DVT prophylaxis On therapeutic Lovenox Code status discussed with the patient for greater than 21 minutes, full code Goals of care addressed with the patient for more than 27 minutes: Full code status Case discussed with Dr. Patel , patient and nurse Plan discussed with: Patient My Orders My Orders Orders - SINTIA BRADEN Procedure Category Date Status Time Amiodarone PHA 03/18/25 In Process 450mg/250ml Ae 16:00 Amiodarone Tablet PHA 03/18/25 In Process (Cordarone Tablet) 22:00 Visit Coding STANDARD RES Billing Provider: YESSENIA PATEL MD Date of Service if different f: Mar 18, 2025 Common Visit Codes: [id number] INP/OBS CARE(HIGH) SINTIA BRADEN Mar 18, 2025 18:23
[2025-03-18] MEDS: INSULIN LANTUS (GLARGINE) 1 /0.01ml (100units/ml) SC SCH (21:42)
[2025-03-18] MEDS: AMIODARONE HCL 200 MG TAB PO SCH (21:43)
[2025-03-19] VITALS (7 sets, daily range): BP systolic 124–136; BP diastolic 46–74; PULSE 53–111; RESP 16–18; TEMP 97.6–97.9; O2SAT 94–99
[2025-03-19 06:34] LABS: Chloride 103 mmol/L (98-107); Potassium 4.4 mmol/L (3.5-5.1); Sodium 139 mmol/L (136-145)
[2025-03-19 06:35] LABS: Anion Gap 10 (5-15); Calcium 9.5 mg/dL (8.7-10.4); Carbon Dioxide 26 mmol/L (20-31)
[2025-03-19 06:40] LABS: BUN/Creatinine Ratio 20.0 (10.0-20.0); Blood Urea Nitrogen 15 mg/dL (9-23)
[2025-03-19 06:42] LABS: Glucose 193 mg/dL (74-106)
--- NOTE | 2025-03-19 07:13 | DVHSR ---
APPROVED REPORT EXAM: Two-dimensional and M-mode echocardiogram with Doppler and color Doppler. Blood Pressure: 120/77 mmHg INDICATION New onset afib RISK FACTORS Height: 5'9", Weight: 181 DIMENSIONS LVDd 3.7 (3.8-5.7cm) LA (2D) 3.5 (1.9-4.0cm) Aortic Root 3.6 (2.0-3.7cm) LVDs 2.5 (2.5-4.0cm) LA (MM) (1.9-4.0cm) Aortic Cusp Exc 2.2 (1.5-2.0cm) EF (%) 55.0 (55-70%) Rt. Atrium 3.5 (1.9-4.0cm) Asc. Aorta cm IVSd 1.0 (0.7-1.1cm) RV (D) (1.8-2.4cm) PWd 1.1 (0.7-1.1cm) Mitral Valve Mitral Mitral Stenosis E wave 1.14m/s MV Mean GR. mmHg E/A ratio 0.0 2D MVA cm2 Aortic Valve Aortic Valve Aortic Stenosis V1 1.04m/s AO Mean GR. 2mmHg V2 1.04m/s AO Peak GR. 4mmHg LVOT Diameter 2.1 (1.8-2.4cm) Doppler AMRIK 3.46cm2 Pulmonic Valve V2 0.89m/s Other Information Quality : Rhythm : Atrial Fibrillation Conclusion lvef 55% midl LVH RV enlarged left atrium enlarged mild mitral regurg
[2025-03-19] MEDS ORDERED: AMIO200T33 PO (11:49)
[2025-03-19] MEDS ORDERED: APIX5TAB PO (11:49)
[2025-03-19] MEDS ORDERED: CARV6.2551 PO (11:49)
[2025-03-19] MEDS ORDERED: LISI-275 PO (13:28)
[2025-03-19] MEDS ORDERED: METO-289 PO (13:28)
--- NOTE | 2025-03-19 14:31 | DVHDSRES ---
Discharge Summary Date of Admission Resident Creating Document: SINTIA BRADEN Mar 17, 2025 at 14:58 Date of Discharge: Mar 19, 2025 Admitting Diagnosis New onset AFib Labs/Diagnostic Data: Laboratory Results Test 03/19/25 06:15 03/19/25 05:55 03/18/25 06:16 03/17/25 16:14 POC Glucose 195 mg/dl (70-106) Sodium Level 139 mmol/L (136-145) Potassium Level 4.4 mmol/L (3.5-5.1) Chloride Level 103 mmol/L (98-107) Carbon Dioxide Level 26 mmol/L (20-31) Anion Gap 10 (5-15) Blood Urea Nitrogen 15 mg/dL (9-23) Creatinine 0.75 mg/dL (0.700-1.30) Glomerular Filtration Rate Calc 98 mL/min (>90) BUN/Creatinine Ratio 20.0 (10.0-20.0) Serum Glucose 193 mg/dL (74-106) Calcium Level 9.5 mg/dL (8.7-10.4) White Blood Count 10.3 10^3/uL (4.4-10.8) Red Blood Count 5.02 10^6/uL (4.5-5.90) Hemoglobin 15.8 g/dL (13.5-17.5) Hematocrit 45.0 % (41.0-53.0) Mean Corpuscular Volume 89.6 fL (80.0-100.0) Mean Corpuscular Hemoglobin 31.5 pg (28.0-32.0) Mean Corpuscular Hemoglobin Concent 35.1 g/dL (32.0-36.0) Red Cell Distribution Width 13.1 % (11.8-14.3) Platelet Count 224 10^3/uL (140-450) Mean Platelet Volume 8.3 fL (6.9-10.8) Neutrophils (%) (Auto) 74.7 % (37.0-80.0) Lymphocytes (%) (Auto) 15.8 % (10.0-50.0) Monocytes (%) (Auto) 6.7 % (0.0-12.0) Eosinophils (%) (Auto) 2.3 % (0.0-7.0) Basophils (%) (Auto) 0.5 % (0.0-2.0) Neutrophils # (Auto) 7.7 10 ^3/uL (1.6-8.6) Lymphocytes # (Auto) 1.6 10 ^3/uL (0.4-5.4) Monocytes # (Auto) 0.7 10 ^3/uL (0-1.3) Eosinophils # (Auto) 0.2 10 ^3/uL (0-0.8) Basophils # (Auto) 0.1 10 ^3/uL (0-0.2) Nucleated Red Blood Cells 0.1 % Total Bilirubin 0.7 mg/dL (0.2-1.0) Aspartate Amino Transferase (AST) 14 U/L (13-40) Alanine Aminotransferase (ALT) 11 U/L (7-40) Alkaline Phosphatase 82 U/L (46-116) Total Protein 6.5 g/dL (5.7-8.2) Albumin 4.0 g/dL (3.2-4.8) Prothrombin Time 11.3 sec (9.3-11.8) Prothrombin Time INR 1.07 (0.9-1.15) Activated Partial Thromboplast Time 27.4 SEC (24.5-34.5) Test 03/17/25 11:30 03/17/25 08:54 Urine Color Light-yellow (Yellow) Urine Clarity Clear (Clear) Urine pH 5.0 (5.0-9.0) Urine Specific [place] 1.021 (1.001-1.035) Urine Protein Negative (Negative) Urine Ketones Negative (Negative) Urine Blood Negative /uL (Negative) Urine Nitrite Negative (Negative) Urine Bilirubin Negative (Negative) Urine Urobilinogen Normal mg/dL (Negative) Urine Leukocyte Esterase Negative /uL (Negative) Urine RBC None seen /hpf (0 - 3) Urine Microscopic WBC < 1 /HPF (0-3) Urine Squamous Epithelial Cells Few /hpf (<5) Urine Bacteria None seen /hpf (None Seen) Urine Mucus Few (None Seen) Urine Glucose 3+ mg/dL (Normal) Urine Opiates Screen Neg (NEGATIVE) Urine Fentanyl Screen Neg (NEGATIVE) Urine Barbiturates Screen Neg (NEGATIVE) Urine Phencyclidine Screen Neg (NEGATIVE) Urine Amphetamines Screen Neg (NEGATIVE) Urine Benzodiazepines Screen Neg (NEGATIVE) Urine Cocaine Screen Neg (NEGATIVE) Urine Cannabinoids Screen Neg (NEGATIVE) Hemoglobin A1c 6.7 % A1C (<5.7) Troponin I High Sensitivity 5 ng/L (</=54) Triglycerides Level 160 mg/dL (< 150) Cholesterol Level 187 mg/dL (< 200) LDL Cholesterol 130 mg/dL (< 100) HDL Cholesterol 52 mg/dL (40-59) Thyroid Stimulating Hormone (TSH) 1.58 uIU/mL (0.55-4.78) Other Laboratory Tests 03/19/25 05:55 03/18/25 06:16 Brief Hx & Hospital Course: 69-year-old male with past medical history of diabetes mellitus, hypertension was recently in the [facility] Clinic for cataract surgery where he had the preop evaluation and was found to have a heart rate of 160s. Patient was asymptomatic during that period of time. Patient is transferred to the ER for management of elevated heart rate. On presenting to the ER, patient was found to have atrial fibrillation and was started on amiodarone drip by the ER physician. He mentioned that he never had AFib in the past and this is new onset AFib. Patient is currently on aspirin(started by the PCP because patient has a history of diabetes and hypertension for cardio protection but no other specific reason) but no other anticoagulants/antiplatelets. He denied any history of stroke. Patient also states he has been taking aspirin for 30 years. And stopped 8 days ago to get cataract surgery. Past surgical history: Denies Family history: Reviewed, noncontributory Social history: Patient denies smoking, alcohol, drug use, medication history: Metformin ,Glipizide, Pioglitazone , Aspirin, Gabapentin Lives with: Family brief hospital course: patient came to the hospital with tachycardia. Patient has new onset AFib with Gallo Vasc score of 4, has bled score is 3. Patient was started on amiodarone drip which was then switched to amiodarone 200 mg b.i.d.. Cardiology was consulted for which Coreg was given. echo showed lvef 55%, midl LVH, RV enlarged , left atrium enlarged, mild mitral regurg. chest x-ray showed no acute into the process. EKG and tropes were negative. Patient has hypotension for which county coroner started Coreg. Patient has diabetes type 2 with HbA1c of 6.7, for which insulin sliding scale was given. Patient was kept on DVT prophylaxis with Lovenox, Patient discharged with Eliquis at bedside. Patient communicated understanding of his discharge plan and agreed. Patient is to follow-up with county coroner outpatient. Patient is to follow-up with the discharge Clinic in 1 week. General: Patient alert and oriented in person, place and time. Patient following commands. HEENT: Normocephalic, atraumatic, moist mucous membranes Respiratory/pulmonary: Clear lungs bilaterally, vesicular murmurs present in almost all lung eckert, no associated crackles or wheezes. Cardiovascular: Normal heart sounds S1 and S2 with no associated murmurs Abdomen: Abdomen nondistended, there is no pain to palpation in any of the abdominal quadrants, no palpable masses. Extremities: There is no peripheral edema present at the lower extremities. Peripheral Pulses: 3+ Radial (R). 3+ Radial (L). 3+ Dorsalis pedis (R). 3+ Dorsalis pedis(L) Skin: No rashes or pruritus, there is no sacral edema present at this time. Neurological: Intact cranial nerves with no focal neurologic deficits patient is to take : Amiodarone 200 mg p.o. daily Eliquis 5 mg p.o. b.i.d. lisinopril 5 mg p.o. daily Metoprolol succinate 50 mg p.o. daily Operations or Procedures ORDERING PHYSICIAN: FITO SHEPHERD MD PROCEDURE(s): CXRP - CHEST PORTABLE REASON: sob ORDER NUMBER(s): [id number], ACCESSION NUMBER(s): [id number] EXAM: XY CHEST PORTABLE HISTORY: sob COMPARISON: None TECHNIQUE: Portable AP view of the chest was performed. FINDINGS: No pneumothorax, consolidative infiltrates, or pulmonary edema. The heart is not enlarged. There is mild thoracic degenerative disc disease. IMPRESSION: No acute intrathoracic process. ATED BY: BLANCA MOSS MD DICTATED DATE/TIME: 03/17/25909 SIGNED BY: BLANCA MOSS MD SIGNED DATE/TIME: 03/17/25909 CC: Condition at Discharge: Stable Final Diagnosis/Problems List New onset atrial fibrillation Hypertensive heart disease Non insulin-dependent Type 2 diabetes mellitus with hyperglycemia Discharge Disposition: Home Discharge Instruct/Medications Diet: Consistent carbohydrate, Cardiac 2g Na,low cholest Activity: No Restrictions, As Tolerated Follow Up/Referral: Follow up in the discharge clinic in 1 week Follow up to be scheduled with the county coroner as outpatient Medications: As per EMR Scheduled Amiodarone Hcl (Amiodarone Hcl), 200 MG PO DAILY Apixaban Base (Eliquis), 5 MG PO BID Aspirin (Aspirin Low Dose), 1 TAB PO DAILY, (Reported) Glipizide (Glipizide), 1 TAB PO BID, (Reported) Lisinopril (Lisinopril), 2 TAB PO DAILY, (Reported) Lisinopril (Lisinopril), 5 MG PO DAILY Metformin Hydrochloride (Metformin Hcl), 1 TAB PO BID, (Reported) Metoprolol Succinate (Metoprolol Succinate Er), 50 MG PO DAILY Discharge Statement: "Patient was advised to return to the ER or call 911 if any headaches, dizziness, shortness of breath, chest pain, abdominal pain, bleeding, fevers, or worsening of medical condition. Patient was counseled about treatment plan, medications, possible side effects, patientverbalized understanding. All questions were answered to the best of my ability. This discharge took greater then 30 minutes in planning, reviewing documentation, counseling the patient, and discussing with other team members." ASSESSMENT ASSESSMENT Assessment New onset atrial fibrillation Hypertensive heart disease Non insulin-dependent Type 2 diabetes mellitus with hyperglycemia Visit Coding STANDARD RES Billing Provider: SINTIA BRADEN Date of Service if different f: Mar 19, 2025 Common Visit Codes: [id number] INP/OBS CARE(HIGH) SINTIA BRADEN Mar 19, 2025 14:31
--- NOTE | 2025-03-21 11:37 | ECG ---
[facility] Test Date: 2025-03-17 Test Time: 08:21:08 Pat Name: JUAN DIEGO LARSON Department: Room: 0281T Gender: M Animal Sticker: naga : [id number] Requested By: FITO SHEPHERD Order Number: [id number] Reading MD: Measurements Intervals [place] Rate: 138 P: 0 MT: 0 QRS: 64 QRSD: 122 T: 11 QT: 325 QTc: 493 Interpretive Statements Atrial fibrillation Right bundle branch block Please click the below link to view image of tracing.
== END 2025-03-19 16:37 | disposition home or self-care (01) | DRG 310 ==
LOC: ER 08:04 → OVERFLOW 14:58 → TELE-WESTW 21:11
PROVIDERS: ADMIT Student in an Organized Health Care Education/Training Program; ATTEND Student in an Organized Health Care Education/Training Program
DX: I48.91 Unspecified atrial fibrillation (principal); E11.36 Type 2 diabetes mellitus with diabetic cataract; I10 Essential (primary) hypertension; E11.65 Type 2 diabetes mellitus with hyperglycemia; Z79.82 Long term (current) use of aspirin; Z79.899 Other long term (current) drug therapy
CPT/HCPCS: 36415; 71045; 80048; 80053; 80061; 80307; 81001; 82962; 83036; 84443; 84484; 85025; 85610; 85730; 93005; 93306; 99291; 99292; G0378